=== PATIENT | male | born 1985 | race Caucasian/White ===

== ENCOUNTER 2019-01-29 01:57 | Emergency (ER) | payer MEDICAID ==
[~2019-01-29] VITALS: Ht 172.7 cm; Wt 61.2 kg
[2019-01-29 02:32] VITALS: BP 125/80
[2019-01-29] MEDS ORDERED: DERMOPLAST 60ML BOTTLE TOP ONE ×2 (03:00→03:09)
[2019-01-29] MEDS ORDERED: LET TOPICAL SOLN 5 ML TOP ONE (03:00)
[2019-01-29] MEDS ORDERED: KETOROLAC TROMETH 60MG/2ML VIAL IM ONE (03:00)
== END 2019-01-29 03:39 | disposition home or self-care (01) ==
LOC: EDBD 01:57 → ER 02:00
DX: T78.2XXA Anaphylactic shock, unspecified, initial encounter (principal); K64.8 Other hemorrhoids
CPT/HCPCS: 96372; 99283; J1885; J3490

== ENCOUNTER → 2019-08-08 | Emergency (ER) | payer MEDICAID ==
[~2019-08-08] VITALS: Ht 172.7 cm; Wt 61.2 kg
[~2019-08-08] MED LIST: ALBUTEROL SULF 2.5 MG/0.5ML(0.5%) NEB SOLN NEB ONE; IPRATROPIUM BROM 0.5 MG/2.5ML INH SOL NEB ONE
[2019-08-08 09:00] VITALS: BP 118/83
== END | disposition home or self-care (01) ==
LOC: EDUNIT# 05:26 → ER 06:34 → EDBD 06:34 → EDSEX 06:34
DX: J45.901 Unspecified asthma with (acute) exacerbation (principal); F31.9 Bipolar disorder, unspecified; F17.210 Nicotine dependence, cigarettes, uncomplicated
CPT/HCPCS: 94640; 99283; J7644

== ENCOUNTER 2019-09-28 07:13 | Emergency (ER) | payer MEDICAID ==
[~2019-09-28] VITALS: Ht 182.9 cm; Wt 63.5 kg
[2019-09-28 08:02] VITALS: BP 144/86
[2019-09-28] MEDS ORDERED: methylPREDNISolone SOD SUCC 125 MG/2 ML VL IM ONE (08:15)
== END 2019-09-28 08:42 | disposition home or self-care (01) ==
LOC: ER 07:13 → EDBD 07:13 → ER 08:42
DX: J45.901 Unspecified asthma with (acute) exacerbation (principal)
CPT/HCPCS: 71046; 96372; 99283; J2930

== ENCOUNTER 2019-10-17 07:36 | Emergency (ER) | payer MEDICAID ==
[~2019-10-17] VITALS: Ht 172.7 cm; Wt 59.0 kg
[2019-10-17 09:43] VITALS: BP 125/90
== END 2019-10-17 10:48 | disposition home or self-care (01) ==
LOC: ER 07:36 → EDBD 07:36 → EDUNIT# 07:36 → ER 10:48
DX: J45.901 Unspecified asthma with (acute) exacerbation (principal); F17.210 Nicotine dependence, cigarettes, uncomplicated
CPT/HCPCS: 71045

== ENCOUNTER 2019-11-01 18:49 | Emergency (ER) | payer MEDICAID ==
[~2019-11-01] VITALS: Ht 172.7 cm; Wt 56.7 kg
[2019-11-01 20:01] LABS: Basophils # (auto) 0 10 ^3/uL (0-0.2); Basophils % (auto) 0.5 % (0.0-2.0); Eosinophils # (auto) 0.9 10 ^3/uL (0-0.8); Eosinophils % (auto) 9.3 % (0.0-7.0); Hematocrit 47.2 % (41.0-53.0); Hemoglobin 16.4 g/dL (13.5-17.5); Lymphocytes % (auto) 21.8 % (10.0-50.0); Mean Corpuscular Hemoglobin 32.2 pg (28.0-32.0); Mean Corpuscular Hgb Conc. 34.8 g/dL (32.0-36.0); Mean Corpuscular Volume 92.5 fL (80.0-100.0); Monocytes # (auto) 0.6 10 ^3/uL (0-1.3); Monocytes % (auto) 6.2 % (0.0-12.0); Neutrophils # (auto) 5.8 10 ^3/uL (1.6-8.6); Neutrophils % (auto) 62.2 % (37.0-80.0); Platelet Count (auto) 160 10^3/uL (140-450); Red Cell Distribution Width 13.4 % (11.8-14.3); White Blood Cell 9.4 10^3/uL (4.4-10.8)
[2019-11-01 20:16] LABS: Albumin 3.6 g/dL (3.4-5.0); Anion Gap 5 (5-15); Blood Alcohol < 3.0 mg/dL (0-5); Blood Urea Nitrogen 13 mg/dL (7-18); Calcium 8.8 mg/dL (8.5-10.1); Carbon Dioxide 25 mmol/L (21-32); Chloride 110 mmol/L (98-107); Glucose 88 mg/dL (74-106); Potassium 3.8 mmol/L (3.5-5.1); Sodium 140 mmol/L (136-145)
[2019-11-01 20:20] LABS: Alanine Aminotransferase 24 U/L (16-61); Alkaline Phosphatase 66 U/L (45-117); Aspartate Aminotransferase 15 U/L (15-37); BUN/Creatinine Ratio 13.5; Bilirubin, Total 0.4 mg/dL (0.2-1.0); GFR African American 115 mL/min; GFR Non-African American 95 mL/min
[2019-11-01 21:31] VITALS: BP 121/83
== END 2019-11-01 21:34 | disposition home or self-care (01) ==
LOC: ER 18:49 → EDBD 18:49 → ER 21:34
DX: G40.409 Other generalized epilepsy and epileptic syndromes, not intractable, without status epilepticus (principal); Z91.14 Patient's other noncompliance with medication regimen; J45.909 Unspecified asthma, uncomplicated
CPT/HCPCS: 36415; 70450; 80053; 80320; 85025

== ENCOUNTER 2019-11-05 23:34 | Emergency (ER) | payer MEDICAID ==
[~2019-11-05] VITALS: Ht 172.7 cm; Wt 59.0 kg
[2019-11-05 23:39] VITALS: BP 131/91
[2019-11-06] MEDS ORDERED: methylPREDNISolone SOD SUCC 125 MG/2 ML VL IM ONE (01:45)
[2019-11-06] MEDS ORDERED: IPRATROPIUM BROM 0.5 MG/2.5ML INH SOL NEB ONE (02:00)
[2019-11-06] MEDS ORDERED: ALBUTEROL SULF 2.5 MG/0.5ML(0.5%) NEB SOLN NEB ONE (02:00)
== END 2019-11-06 02:18 | disposition home or self-care (01) ==
LOC: EDBD 23:34 → ER 23:35
DX: J45.901 Unspecified asthma with (acute) exacerbation (principal); F17.210 Nicotine dependence, cigarettes, uncomplicated; J45.909 Unspecified asthma, uncomplicated
CPT/HCPCS: 94640; 96372; 99283; J2930; J7644

== ENCOUNTER 2019-12-03 07:39 | Emergency (ER) | payer MEDICAID ==
[~2019-12-03] VITALS: Ht 170.2 cm; Wt 50.8 kg
[2019-12-03 08:04] LABS: Basophils # (auto) 0.1 10 ^3/uL (0-0.2); Basophils % (auto) 0.6 % (0.0-2.0); Eosinophils # (auto) 0.9 10 ^3/uL (0-0.8); Hematocrit 45.2 % (41.0-53.0); Hemoglobin 15.6 g/dL (13.5-17.5); Lymphocytes # (auto) 1.4 10 ^3/uL (0.4-5.4); Lymphocytes % (auto) 14.1 % (10.0-50.0); Mean Corpuscular Hemoglobin 32.3 pg (28.0-32.0); Mean Corpuscular Hgb Conc. 34.6 g/dL (32.0-36.0); Mean Corpuscular Volume 93.3 fL (80.0-100.0); Monocytes # (auto) 0.6 10 ^3/uL (0-1.3); Monocytes % (auto) 6.3 % (0.0-12.0); Neutrophils # (auto) 7.2 10 ^3/uL (1.6-8.6); Platelet Count (auto) 155 10^3/uL (140-450); Red Blood Cells 4.84 10^6/uL (4.5-5.90); Red Cell Distribution Width 13.6 % (11.8-14.3); White Blood Cell 10.2 10^3/uL (4.4-10.8)
[2019-12-03 08:21] LABS: Albumin 3.7 g/dL (3.4-5.0); Calcium 8.8 mg/dL (8.5-10.1); Potassium 3.3 mmol/L (3.5-5.1)
[2019-12-03 08:24] LABS: BUN/Creatinine Ratio 9.5; Bilirubin, Total 0.4 mg/dL (0.2-1.0); Total Protein 6.8 g/dL (6.4-8.2)
[2019-12-03] MEDS ORDERED: IPRATROPIUM BROM 0.5 MG/2.5ML INH SOL NEB ONE (09:15)
[2019-12-03] MEDS ORDERED: ALBUTEROL SULF 2.5 MG/0.5ML(0.5%) NEB SOLN NEB ONE (09:15)
[2019-12-03] MEDS ORDERED: POTASSIUM EFFERVESENT TAB 25 MEQ PO ONE (09:15)
[2019-12-03 10:56] VITALS: BP 109/78
== END 2019-12-03 11:24 | disposition home or self-care (01) ==
LOC: EDBD 07:39 → ER 07:39
DX: J45.901 Unspecified asthma with (acute) exacerbation (principal); E87.6 Hypokalemia; F17.210 Nicotine dependence, cigarettes, uncomplicated
CPT/HCPCS: 36415; 71045; 80053; 85025; 94640; 99284; J7644

== ENCOUNTER 2019-12-26 06:04 | Emergency (ER) | payer MEDICAID ==
[~2019-12-26] VITALS: Ht 170.2 cm; Wt 52.2 kg
[2019-12-26] MEDS ORDERED: methylPREDNISolone SOD SUCC 125 MG/2 ML VL IV ONE (06:30)
[2019-12-26] MEDS ORDERED: SODIUM CHLORIDE 0.9% 1,000 ML IV ONE (06:30)
[2019-12-26] MEDS ORDERED: SODIUM CHLORIDE 0.9% 1,000 ML IVB ONE (06:30)
[2019-12-26 06:38] LABS: Basophils # (auto) 0.1 10 ^3/uL (0-0.2); Basophils % (auto) 0.6 % (0.0-2.0); Eosinophils # (auto) 0.9 10 ^3/uL (0-0.8); Hematocrit 47.5 % (41.0-53.0); Lymphocytes # (auto) 2.1 10 ^3/uL (0.4-5.4); Mean Corpuscular Hemoglobin 33.2 pg (28.0-32.0); Mean Corpuscular Hgb Conc. 35.8 g/dL (32.0-36.0); Mean Corpuscular Volume 92.8 fL (80.0-100.0); Monocytes # (auto) 0.5 10 ^3/uL (0-1.3); Monocytes % (auto) 6.1 % (0.0-12.0); Neutrophils # (auto) 4.7 10 ^3/uL (1.6-8.6); Neutrophils % (auto) 57.3 % (37.0-80.0); Nucleated Red Blood Cells % 0.1 %; Platelet Count (auto) 173 10^3/uL (140-450); Red Blood Cells 5.12 10^6/uL (4.5-5.90); Red Cell Distribution Width 13.4 % (11.8-14.3); White Blood Cell 8.2 10^3/uL (4.4-10.8)
[2019-12-26 06:54] LABS: Albumin 3.7 g/dL (3.4-5.0); Calcium 8.9 mg/dL (8.5-10.1); Magnesium 2.5 mg/dL (1.6-2.6); Potassium 3.7 mmol/L (3.5-5.1)
[2019-12-26 06:59] LABS: BUN/Creatinine Ratio 13.8; Bilirubin, Total 0.3 mg/dL (0.2-1.0)
[2019-12-26 08:52] LABS: Urine WBC None Seen /hpf (0 - 3)
[2019-12-26 09:02] LABS: Urine Amorphous Crystal FEW /hpf (None Seen); Urine Bacteria NONE SEEN /hpf (None Seen); Urine Blood Negative /uL (Negative); Urine Specific Gravity 1.015 (1.001-1.035)
[2019-12-26] MEDS ORDERED: ALBUTEROL SULF 2.5 MG/0.5ML(0.5%) NEB SOLN NEB ONE (10:45)
[2019-12-26] MEDS ORDERED: IPRATROPIUM BROM 0.5 MG/2.5ML INH SOL NEB ONE (10:45)
[2019-12-26 12:00] VITALS: BP 113/81
== END 2019-12-26 13:01 | disposition home or self-care (01) ==
LOC: ER 06:04 → EDBD 06:04 → ER 13:00
DX: J45.901 Unspecified asthma with (acute) exacerbation (principal); F31.9 Bipolar disorder, unspecified; F17.210 Nicotine dependence, cigarettes, uncomplicated
CPT/HCPCS: 36415; 71046; 80053; 81001; 83735; 84443; 85025; 93005; 94640; 96361; 96374; 99285; J2930; J7030; J7644

== ENCOUNTER 2020-01-07 16:18 | Emergency (ER) | payer MEDICAID ==
[~2020-01-07] VITALS: Ht 172.7 cm; Wt 52.2 kg
[2020-01-07 16:25] VITALS: BP 142/99
[2020-01-07] MEDS ORDERED: methylPREDNISolone SOD SUCC 125 MG/2 ML VL IV ONE (16:30)
[2020-01-07] MEDS ORDERED: IPRATROPIUM BROM 0.5 MG/2.5ML INH SOL NEB ONE (17:00)
[2020-01-07] MEDS ORDERED: ALBUTEROL SULF 2.5 MG/0.5ML(0.5%) NEB SOLN NEB ONE (17:00)
[2020-01-07] MEDS ORDERED: methylPREDNISolone SOD SUCC 125 MG/2 ML VL IM ONE (17:00)
== END 2020-01-07 18:00 | disposition home or self-care (01) ==
LOC: EDBD 16:18 → ER 16:18
DX: J45.901 Unspecified asthma with (acute) exacerbation (principal); F17.210 Nicotine dependence, cigarettes, uncomplicated
CPT/HCPCS: 71045; 96372; 99283; J2930; J7644; 94640